=== PATIENT | male | born 1960 | race American Indian/Alaskan Native ===

== ENCOUNTER 2020-12-06 11:48 | Observation (INO) | payer OTHER ==
--- NOTE | 2020-12-06 12:46 | Event Note ---
ED Screening Note Date of service: 12/06/20 Time: 12:43 ED Screening Note: Patient was sent to the ER today by his primary care doctor with complaints of chest pain and low heart rate. Patient states that he started having left-sided chest pain back in September 2020. The time the chest pain started he was hospitalized for having a CVA with left- sided residual deficits. He states that while he was in the hospital dated a few EKGs with no significant changes. He did see a proj engineer in the hospital and it was recommended that he follows up after he got discharged but due to lack of transportation he never followed up. He states that he went in for checkup by his primary care doctor last week Sunday, he mentioned the chest pain and he noticed his heart rate was low but he told him to come back today for recheck, and again noticed that his heart rate was low and sent him here to the ER. Past medical history includes CVA with left-sided weakness, diabetes, hyperlipidemia and hypertension. This initial assessment/diagnostic orders/clinical plan/treatment(s) is/are subject to change based on patients health status, clinical progression and re- assessment by fellow clinical providers in the ED. Further treatment and workup at subsequent clinical providers discretion. Patient/guardian urged not to elope from the ED as their condition may be serious if not clinically assessed and managed. Initial orders include: Chest pain order set
[2020-12-06 13:34] LABS: Basophils # (Auto) 0.1 K/mm3 (0.0-0.1); Basophils % (Auto) 1.1 % (0.0-1.8); Eosinophils # (Auto) 0.1 K/mm3 (0.0-0.4); Eosinophils % (Auto) 1.9 % (0.0-4.3); Hematocrit 43.7 % (35.5-45.6); Hemoglobin 14.1 gm/dl (11.8-15.2); Lymphocytes # (Auto) 2.5 K/mm3 (1.2-5.4); Lymphocytes % (Auto) 48.2 % (13.4-35.0); Mean Corpuscular HGB Conc 32 % (32-34); Mean Corpuscular Volume 90 fl (84-94); Monocytes # (Auto) 0.5 K/mm3 (0.0-0.8); Monocytes % (Auto) 9.5 % (0.0-7.3); Platelet Count 151 K/mm3 (140-440); Red Blood Count 4.88 M/mm3 (3.65-5.03); Red Cell Distribution Width 13.9 % (13.2-15.2)
[2020-12-06 13:43] LABS: INR 1.09 (0.87-1.13)
[2020-12-06 13:44] LABS: Partial Thromboplastin Time 27.4 Sec. (24.2-36.6)
[2020-12-06 13:53] LABS: Alanine Aminotransferase 22 units/L (7-56); Albumin 4.2 g/dL (3.9-5); BUN/Creatinine Ratio 15; Blood Urea Nitrogen 12 mg/dL (9-20); Calcium 8.9 mg/dL (8.4-10.2); Hemolysis Index 8
--- NOTE | 2020-12-06 14:12 | XRay Report ---
CHEST PA AND LATERAL VIEWS INDICATION: Chest Pain. COMPARISON: 11/04/2020 FINDINGS: Support devices: None. Heart: Within normal limits. Lungs/Pleura: No acute pulmonary or pleural findings. IMPRESSION: 1. No significant change. Signer Name: Pedro Harris MD Signed: 12/06/2020 2:07 PM Workstation Name: [id number]
[2020-12-06 14:15] LABS: Amphetamine Screen,Urine Negative; Benzodiazepines Screen,Urine Negative; Cannabinoid Screen,Urine Negative; Cocaine Screen,Urine Negative; Methadone Screen,Urine Negative; Opiate Screen,Urine Negative
--- NOTE | 2020-12-06 20:19 | Emergency Department Report ---
ED Chest Pain HPI - General Chief Complaint: Chest Pain Stated Complaint: TROUBLE BREATHING Time Seen by Provider: 12/06/20 19:12 Source: patient Mode of arrival: Ambulatory Limitations: No Limitations - History of Present Illness Initial Comments: This is a 60-year-old male nontoxic, well nourished in appearance, no acute signs of distress presents to the ED with c/o of left sided chest pain, shortness of breath x1 month and worsened since Sunday. Patient stated has some radiation to the left shoulder. Patient describes pain as sharp with tightness in nature. Patient denies any upper respiratory symptoms. Patient denies any hemoptysis, fever, chills, nausea, vomiting, headache, stiff neck, numbness, tingling, abdominal pain. Patient denies any recent travels or long car rides. Patient denies any recent surgeries or any sick contacts. Patient denies any drug allergies. Past medical history includes CVA, diabetes and hypertension, hyperlipidemia and bradycardia. Patient was sent by PCP for further evaluation possible admission MD Complaint: chest pain -: month(s) Pain Location: left chest Pain Radiation: LUE Severity: moderate Severity scale (0 -10): 8 Quality: tightness, sharp Consistency: constant Improves With: nothing Worsens With: nothing re: denies: nausea, vomting, diaphoresis, dyspnea, sense of impending doom Other Symptoms: denies: cough, fever, syncope, rash, acid taste in mouth, leg swelling, palpitations, burping Treatments Prior to Arrival: none - Related Data Previous Rx's Medication Instructions Recorded Last Taken Type Aspirin EC [Ecotrin] 325 mg PO QDAY #30 tablet 11/05/20 Unknown Rx AtorvaSTATin [Lipitor] 40 mg PO QHS #30 tablet 11/05/20 Unknown Rx Gabapentin 100 mg PO Q8HR #90 capsule 11/05/20 Unknown Rx Insulin NPH Hum/Reg Insulin Hm 17 unit SQ BIDWM #1 vial 11/05/20 Unknown Rx [Novolin 70-30 100 Unit/ml Vial] Pantoprazole [Protonix TAB] 20 mg PO QDAC #30 tablet. 11/05/20 Unknown Rx amLODIPine 10 mg PO QDAY #30 tablet 11/05/20 Unknown Rx glipiZIDE [Glucotrol] 10 mg PO BIDDIAB #60 tablet 11/05/20 Unknown Rx lisinopriL [Zestril TAB] 30 mg PO QDAY #45 tablet 11/05/20 Unknown Rx Allergies Allergy/AdvReac Type Severity Reaction Status Date / Time No Known Allergies Allergy Verified 09/30/20 05:53 Heart Score - HEART Score History: Moderately suspicious EKG: Normal Age: 45-65 Risk factors: > 3 risk factors or hx of atherosclerotic disease Troponin: < normal limit HEART Score: 4 - EKG Read Time Time EKG Completed: 00:00 (see EKG ) EKG Read Time: 00:00 (see EKG) - Critical Actions Critical Actions: 4-6 pts:12-16.6% risk of adverse cardiac event. Should be admitted ED Review of Systems ROS: Stated complaint: TROUBLE BREATHING Other details as noted in HPI Constitutional: denies: chills, fever Eyes: denies: eye pain, eye discharge, vision change ENT: denies: ear pain, throat pain Respiratory: shortness of breath. denies: cough, wheezing Cardiovascular: chest pain. denies: palpitations Endocrine: no symptoms reported Gastrointestinal: denies: abdominal pain, nausea, diarrhea Genitourinary: denies: urgency, dysuria Musculoskeletal: denies: back pain, joint swelling, arthralgia Skin: denies: rash, lesions Neurological: denies: headache, weakness, paresthesias Psychiatric: denies: anxiety, depression Hematological/Lymphatic: denies: easy bleeding, easy bruising ED Past Medical Hx - Past Medical History Previous Medical History?: Yes Hx Hypertension: Yes Hx CVA: Yes Hx Diabetes: Yes Hx HIV: No Additional medical history: HYPERLIPIDEMIA,BRADYCARDIA - Surgical History Additional Surgical History: glaucoma surgery - Social History Smoking Status: Current Every Day Smoker - Medications Home Medications: Home Medications Medication Instructions Recorded Confirmed Last Taken Type Aspirin EC [Ecotrin] 325 mg PO QDAY #30 tablet 11/05/20 Unknown Rx AtorvaSTATin [Lipitor] 40 mg PO QHS #30 tablet 11/05/20 Unknown Rx Gabapentin 100 mg PO Q8HR #90 capsule 11/05/20 Unknown Rx Insulin NPH Hum/Reg Insulin Hm 17 unit SQ BIDWM #1 vial 11/05/20 Unknown Rx [Novolin 70-30 100 Unit/ml Vial] Pantoprazole [Protonix TAB] 20 mg PO QDAC #30 tablet. 11/05/20 Unknown Rx amLODIPine 10 mg PO QDAY #30 tablet 11/05/20 Unknown Rx glipiZIDE [Glucotrol] 10 mg PO BIDDIAB #60 tablet 11/05/20 Unknown Rx lisinopriL [Zestril TAB] 30 mg PO QDAY #45 tablet 11/05/20 Unknown Rx ED Physical Exam - General Limitations: No Limitations General appearance: alert, in no apparent distress - Head Head exam: Present: atraumatic, normocephalic - Eye Eye exam: Present: normal appearance - Neck Neck exam: Present: normal inspection, full ROM. Absent: lymphadenopathy - Respiratory Respiratory exam: Present: normal lung sounds bilaterally. Absent: respiratory distress, wheezes, rales, rhonchi, stridor, chest wall tenderness, accessory muscle use, decreased breath sounds, prolonged expiratory - Cardiovascular Cardiovascular Exam: Present: normal rhythm, bradycardia, normal heart sounds. Absent: systolic murmur, diastolic murmur, rubs, gallop - GI/Abdominal GI/Abdominal exam: Present: soft, normal bowel sounds. Absent: distended, tenderness, guarding, rebound, rigid, diminished bowel sounds - Extremities Exam Extremities exam: Present: normal inspection, full ROM, normal capillary refill. Absent: tenderness, pedal edema - Back Exam Back exam: Present: normal inspection, full ROM - Neurological Exam Neurological exam: Present: alert, oriented X3, normal gait - Psychiatric Psychiatric exam: Present: normal affect, normal mood - Skin Skin exam: Present: warm, dry, intact, normal color. Absent: rash ED Course Vital Signs 12/06/20 12/06/20 11:57 23:06 Temperature 98.3 F Pulse Rate 53 L 56 L Respiratory 18 16 Rate Blood Pressure 166/83 150/77 [Right] O2 Sat by Pulse 99 98 Oximetry - Reevaluation(s) Reevaluation #1: 12/06/20 20:17 Patient is speaking in full sentences with no signs of distress noted. - Consultations Consultation #1: 12/06/20 21:39 Patient has been consulted with Dr. Timmons about patient history, physical exam, and labs and accepts patient to services. EMMETT score - Emmett Score Age > 65: (0) No Aspirin use within the Past 7 Days: (0) No 3 or more CAD Risk Factors: (1) Yes 2 or more Angina events in past 24 hrs: (1) Yes Known CAD with more than 50% Stenosis: (0) No Elevated Cardiac Markers: (0) No ST Deviation Greater than 0.5mm: (0) No EMMETT Score: 2 ED Medical Decision Making - Lab Data Result diagrams: 12/06/20 23:58 12/06/20 23:58 Lab Results 12/06/20 12/06/20 12/06/20 Range/Units 12:56 12:56 12:56 WBC 5.1 (4.5-11.0) K/mm3 RBC 4.88 (3.65-5.03) M/mm3 Hgb 14.1 (11.8-15.2) gm/dl Hct 43.7 (35.5-45.6) % MCV 90 (84-94) fl MCH 29 (28-32) pg MCHC 32 (32-34) % RDW 13.9 (13.2-15.2) % Plt Count 151 (140-440) K/mm3 Lymph % (Auto) 48.2 H (13.4-35.0) % [place] % (Auto) 9.5 H (0.0-7.3) % Eos % (Auto) 1.9 (0.0-4.3) % Baso % (Auto) 1.1 (0.0-1.8) % Lymph # (Auto) 2.5 (1.2-5.4) K/mm3 [place] # (Auto) 0.5 (0.0-0.8) K/mm3 Eos # (Auto) 0.1 (0.0-0.4) K/mm3 Baso # (Auto) 0.1 (0.0-0.1) K/mm3 Seg Neutrophils % 39.3 L (40.0-70.0) % Seg Neutrophils # 2.0 (1.8-7.7) K/mm3 PT 13.9 (12.2-14.9) Sec. INR 1.09 (0.87-1.13) APTT 27.4 (24.2-36.6) Sec. Sodium 138 (137-145) mmol/L Potassium 4.0 (3.6-5.0) mmol/L Chloride 102.1 (98-107) mmol/L Carbon Dioxide 29 (22-30) mmol/L Anion Gap 11 mmol/L BUN 12 (9-20) mg/dL Creatinine 0.8 (0.8-1.3) mg/dL Estimated GFR > 60 ml/min BUN/Creatinine Ratio 15 % Glucose 172 H (75-100) mg/dL Calcium 8.9 (8.4-10.2) mg/dL Total Bilirubin 0.20 (0.1-1.2) mg/dL AST 19 (5-40) units/L ALT 22 (7-56) units/L Alkaline Phosphatase 63 (35-129) units/L Troponin T < 0.010 (0.00-0.029) ng/mL NT-Pro-B Natriuret Pep (0-900) pg/mL Total Protein 7.7 (6.3-8.2) g/dL Albumin 4.2 (3.9-5) g/dL Albumin/Globulin Ratio 1.2 % Lipase 31 (13-60) units/L Urine Opiates Screen Urine Methadone Screen Ur Barbiturates Screen Ur Phencyclidine Scrn Ur Amphetamines Screen U Benzodiazepines Scrn Urine Cocaine Screen U Marijuana (THC) Screen Drugs of Abuse Note 12/06/20 12/06/20 12/06/20 Range/Units 13:00 13:56 18:14 WBC (4.5-11.0) K/mm3 RBC (3.65-5.03) M/mm3 Hgb (11.8-15.2) gm/dl Hct (35.5-45.6) % MCV (84-94) fl MCH (28-32) pg MCHC (32-34) % RDW (13.2-15.2) % Plt Count (140-440) K/mm3 Lymph % (Auto) (13.4-35.0) % [place] % (Auto) (0.0-7.3) % Eos % (Auto) (0.0-4.3) % Baso % (Auto) (0.0-1.8) % Lymph # (Auto) (1.2-5.4) K/mm3 [place] # (Auto) (0.0-0.8) K/mm3 Eos # (Auto) (0.0-0.4) K/mm3 Baso # (Auto) (0.0-0.1) K/mm3 Seg Neutrophils % (40.0-70.0) % Seg Neutrophils # (1.8-7.7) K/mm3 PT (12.2-14.9) Sec. INR (0.87-1.13) APTT (24.2-36.6) Sec. Sodium (137-145) mmol/L Potassium (3.6-5.0) mmol/L Chloride (98-107) mmol/L Carbon Dioxide (22-30) mmol/L Anion Gap mmol/L BUN (9-20) mg/dL Creatinine (0.8-1.3) mg/dL Estimated GFR ml/min BUN/Creatinine Ratio % Glucose (75-100) mg/dL Calcium (8.4-10.2) mg/dL Total Bilirubin (0.1-1.2) mg/dL AST (5-40) units/L ALT (7-56) units/L Alkaline Phosphatase (35-129) units/L Troponin T < 0.010 (0.00-0.029) ng/mL NT-Pro-B Natriuret Pep 158.9 (0-900) pg/mL Total Protein (6.3-8.2) g/dL Albumin (3.9-5) g/dL Albumin/Globulin Ratio % Lipase (13-60) units/L Urine Opiates Screen Negative Urine Methadone Screen Negative Ur Barbiturates Screen Negative Ur Phencyclidine Scrn Negative Ur Amphetamines Screen Negative U Benzodiazepines Scrn Negative Urine Cocaine Screen Negative U Marijuana (THC) Screen Negative Drugs of Abuse Note Disclamer - EKG Data 12/06/20 20:18 Sinus bradycardia at 51 bpm. Left bundle todd block. No significant ST abnormalities. Reviewed and signed by MD. - Radiology Data [facility] [address] [place] [address] XRay Report Signed Patient: VITO MARIN MR#: [id number] : 1960 Acct:[id number] Age/Sex: 60 / M ADM Date: 12/06/20 Loc: ED Attending Dr: Ordering Physician: OMAR CASTANEDA Date of Service: 12/06/20 Procedure(s): XR chest routine 2V Accession Number(s): [id number] cc: OMAR CASTANEDA Fluoro Time In Minutes: CHEST PA AND LATERAL VIEWS INDICATION: Chest Pain. COMPARISON: 11/04/2020 FINDINGS: Support devices: None. Heart: Within normal limits. Lungs/Pleura: No acute pulmonary or pleural findings. IMPRESSION: 1. No significant change. Signer Name: Pedro Harris MD Signed: 12/06/2020 2:07 PM [employer] Name: [email or web address] Transcribed By: AIDE Dictated By: Pedro Harris MD Electronically Authenticated By: Pedro Harris MD Signed Date/Time: 12/06/201406 DD/ 05 TD/TT: - Medical Decision Making 60-year-old male that presents with chest pain and shortness of breath. Patient otherwise is stable and was examined by me. Patient has a heart score and EMMETT score of 4 and 3. Patient denies following up with a vertical lathe operator recently for echocardiogram or stress test. Patient was sent by PCP for further relation possible admission. Patient met with hospitalist for further evaluation and treatment. Diagnostic studies has been obtained. Patient is notified of the results with no questions noted by the patient. At time of admission, the patient does not seem toxic or ill in appearance. No acute signs of distress noted. Patient agrees to admission treatment plan of care. No further questions noted by the patient. Critical care attestation.: If time is entered above; I have spent that time in minutes in the direct care of this critically ill patient, excluding procedure time. ED Disposition Clinical Impression: SOB (shortness of breath) Chest pain Qualifiers: Chest pain type: unspecified Qualified Code(s): R07.9 - Chest pain, unspecified Disposition: OP ADMIT IP TO THIS HOSP Is pt being admited?: Yes Condition: Stable Time of Disposition: 21:40
[2020-12-06 21:26] LABS: Bilirubin,Urine NEG (Negative); Blood,Urine SM (Negative); Color,Urine Yellow (Yellow); Mucus,Urine FEW /HPF; Urobilinogen,Urine < 2.0 mg/dL (<2.0)
[2020-12-06] MEDS ORDERED: MORPHINE 4 MG/1 ML INJ IV PRN (22:16)
[2020-12-06] MEDS ORDERED: MAGNESIUM HYDROXIDE (MOM) ORAL LIQD UDC PO PRN (22:16)
[2020-12-06] MEDS ORDERED: ONDANSETRON 4 MG/2 ML INJ IV PRN (22:16)
[2020-12-06] MEDS ORDERED: DEXTROSE 50% IN WATER (25GM) 50 ML SYRINGE IV PRN (22:16)
[2020-12-06] MEDS ORDERED: ACETAMINOPHEN 325 MG TAB PO PRN ×2 (22:16)
[2020-12-06] MEDS ORDERED: traMADol 50 MG TAB PO PRN (22:16)
[2020-12-06] MEDS ORDERED: NITROGLYCERIN 0.4 MG TAB SUBL SL PRN (22:16)
--- NOTE | 2020-12-06 22:31 | History and Physical Report ---
History of Present Illness Date of examination: 12/06/20 Date of admission: 12/06/2020 Chief complaint: CHEST PAIN History of present illness: 60-year-old male presenting in the emergency room today complaining of left- sided chest pain which has been ongoing for the past 3 days. Chest pain has been associated with shortness of breath. He describes pain as sharp affect like tightness in nature. He denies any fever or chills, no nausea vomiting, no headache or dizziness, no diaphoresis. He has been no pain of radiation of the pain. There is no known relieving or exacerbating factor. Patient denies any sick contacts or recent travel. Denies any contact with anyone with COVID-19. He was recently in this hospital having had a CVA and has also gone for rehab. Patient was seen by his primary care physician who encouraged him to report to the emergency room for further evaluation. Work-up in the emergency room today, chest x-ray has been unremarkable. T roponin and EKG has been negative for any acute abnormalities. Patient is being admitted for chest pain evaluation. Past History Past Medical History: diabetes, hypertension, hyperlipidemia, stroke Past Surgical History: Other (Glaucoma surgery) Social history: smoking (Current daily smoker) Family history: no significant family history Medications and Allergies Allergies Allergy/AdvReac Type Severity Reaction Status Date / Time No Known Allergies Allergy Verified 09/30/20 05:53 Home Medications Medication Instructions Recorded Confirmed Last Taken Type Aspirin EC [Ecotrin] 325 mg PO QDAY #30 tablet 11/05/20 Unknown Rx AtorvaSTATin [Lipitor] 40 mg PO QHS #30 tablet 11/05/20 Unknown Rx Gabapentin 100 mg PO Q8HR #90 capsule 11/05/20 Unknown Rx Insulin NPH Hum/Reg Insulin Hm 17 unit SQ BIDWM #1 vial 11/05/20 Unknown Rx [Novolin 70-30 100 Unit/ml Vial] Pantoprazole [Protonix TAB] 20 mg PO QDAC #30 tablet. 11/05/20 Unknown Rx amLODIPine 10 mg PO QDAY #30 tablet 11/05/20 Unknown Rx glipiZIDE [Glucotrol] 10 mg PO BIDDIAB #60 tablet 11/05/20 Unknown Rx lisinopriL [Zestril TAB] 30 mg PO QDAY #45 tablet 11/05/20 Unknown Rx Review of Systems Constitutional: no fever, no chills Ears, nose, mouth and throat: no nasal congestion, no sore throat Cardiovascular: chest pain, no palpitations Respiratory: no cough, no shortness of breath Gastrointestinal: no abdominal pain, no nausea, no vomiting, no diarrhea Genitourinary Male: no dysuria, no hematuria, no flank pain, no nocturia Musculoskeletal: no neck pain, no low back pain Integumentary: no rash, no pruritis Neurological: no headaches, no confusion Psychiatric: no anxiety, no depression Endocrine: no polyphagia, no polydipsia, no polyuria Exam - Constitutional Vitals: Temp Pulse Resp BP Pulse Ox 98.3 F 53 L 18 166/83 99 12/06/20 11:57 12/06/20 11:57 12/06/20 11:57 12/06/20 11:57 12/06/20 11:57 General appearance: Present: no acute distress, well-nourished - EENT Eyes: Present: PERRL, EOM intact. Absent: scleral icterus ENT: hearing intact, clear oral mucosa, dentition normal - Neck Neck: Present: supple, normal ROM - Respiratory Respiratory effort: normal Respiratory: bilateral: CTA - Cardiovascular Rhythm: regular Heart Sounds: Present: S1 & S2. Absent: gallop, systolic murmur, diastolic murmur, rub, click - Extremities Extremities: no ischemia, pulses intact, pulses symmetrical, normal temperature, normal color, Full ROM Extremity abnormal: edema (1+ ankle edema bilaterally) Peripheral Pulses: within normal limits - Abdominal General gastrointestinal: Present: soft, non-tender, non-distended, normal bowel sounds. Absent: mass - Integumentary Integumentary: Present: clear, warm, dry. Absent: rash - Musculoskeletal Musculoskeletal: strength equal bilaterally, left sided weakness - Psychiatric Psychiatric: appropriate mood/affect, intact judgment & insight, memory intact, cooperative - Neurologic Neurologic: CNII-XII intact, no focal deficits, moves all extremities HEART Score - HEART Score History: Moderately suspicious EKG: Normal Age: 45-65 Risk factors: > 3 risk factors or hx of atherosclerotic disease Troponin: Troponin T < 0.010 ng/mL (0.00-0.029) 12/06/20 18:14 Troponin: < normal limit HEART Score: 4 - Critical Actions Critical Actions: 4-6 pts:12-16.6% risk of adverse cardiac event. Should be admitted Results - Labs CBC & Chem 7: 12/07/20 04:29 12/06/20 23:58 Labs: Abnormal lab results 12/06/20 12/06/20 12/06/20 Range/Units 12:56 12:56 Unknown Lymph % (Auto) 48.2 H (13.4-35.0) % [place] % (Auto) 9.5 H (0.0-7.3) % Seg Neutrophils % 39.3 L (40.0-70.0) % Glucose 172 H (75-100) mg/dL Urine WBC (Auto) 9.0 H (0.0-6.0) /HPF Assessment and Plan - Patient Problems (1) Chest pain Current Visit: Yes Status: Acute Qualifiers: Chest pain type: unspecified Qualified Code(s): R07.9 - Chest pain, unspecified Plan to address problem: Patient placed on telemetry. Will check serial cardiac enzymes. Patient commenced on daily aspirin, sublingual nitroglycerin and IV morphine as needed for chest pain. We will place consult to cardiology for evaluation. (2) Hypertension Current Visit: No Status: Acute Plan to address problem: We will resume routine home medications and monitor vital signs closely. (3) Diabetes mellitus Current Visit: No Status: Acute Plan to address problem: We will monitor Accu-Cheks. Patient placed on sliding scale insulin. (4) History of CVA (cerebrovascular accident) Current Visit: Yes Status: Acute Plan to address problem: Patient had CVA recently. Currently going to rehab. We will continue on daily aspirin. Consult will be placed to physical therapy for evaluation and recommendations while in the hospital. (5) DVT prophylaxis Current Visit: No Status: Acute Plan to address problem: Patient placed on subcutaneous heparin. (6) Full code status Current Visit: No Status: Acute Plan to address problem: Patient is a full code.
[2020-12-07 00:25] LABS: Basophils % (Auto) 0.4 % (0.0-1.8); Eosinophils # (Auto) 0.1 K/mm3 (0.0-0.4); Eosinophils % (Auto) 2.1 % (0.0-4.3); Hematocrit 40.2 % (35.5-45.6); Hemoglobin 13.3 gm/dl (11.8-15.2); Lymphocytes # (Auto) 2.5 K/mm3 (1.2-5.4); Mean Corpuscular HGB Conc 33 % (32-34); Mean Corpuscular Volume 89 fl (84-94); Monocytes # (Auto) 0.5 K/mm3 (0.0-0.8); Monocytes % (Auto) 10.3 % (0.0-7.3); Platelet Count 134 K/mm3 (140-440); Red Blood Count 4.52 M/mm3 (3.65-5.03); Red Cell Distribution Width 13.7 % (13.2-15.2)
[2020-12-07 00:30] LABS: BUN/Creatinine Ratio 15; Blood Urea Nitrogen 12 mg/dL (9-20); Calcium 8.6 mg/dL (8.4-10.2); Hemolysis Index 6
[2020-12-07 02:23] LABS: Chol/HDL Ratio 3.45 %
[2020-12-07] MEDS: HEPARIN 5,000 UNIT/1 ML VIAL SUB-Q SCH ×2 (05:41→13:01)
[2020-12-07 06:12] LABS: Basophils % (Auto) 0.3 % (0.0-1.8); Eosinophils # (Auto) 0.1 K/mm3 (0.0-0.4); Eosinophils % (Auto) 1.6 % (0.0-4.3); Hematocrit 41.2 % (35.5-45.6); Hemoglobin 13.4 gm/dl (11.8-15.2); Lymphocytes % (Auto) 50.7 % (13.4-35.0); Mean Corpuscular HGB Conc 33 % (32-34); Mean Corpuscular Volume 89 fl (84-94); Monocytes # (Auto) 0.7 K/mm3 (0.0-0.8); Monocytes % (Auto) 11.2 % (0.0-7.3); Platelet Count 153 K/mm3 (140-440); Red Blood Count 4.63 M/mm3 (3.65-5.03); Red Cell Distribution Width 13.9 % (13.2-15.2)
[2020-12-07 06:14] LABS: INR 1.14 (0.87-1.13)
[2020-12-07 06:23] LABS: BUN/Creatinine Ratio 13; Blood Urea Nitrogen 10 mg/dL (9-20); Calcium 8.6 mg/dL (8.4-10.2); Hemolysis Index 6
[2020-12-07] MEDS: INSULIN REGULAR, HUMAN 100 UNITS/1 ML SUB-Q SCH ×2 (07:58→13:03)
[2020-12-07] MEDS ORDERED: ASPIRIN EC 325 MG TAB PO SCH (10:00)
[2020-12-07] MEDS ORDERED: LISINOPRIL 20 MG TAB PO SCH (10:00)
[2020-12-07] MEDS ORDERED: amLODIPine 10 MG TAB PO SCH (10:00)
[2020-12-07] MEDS ORDERED: REGADENOSON 0.4 MG/5 ML INJ IV ONE ×2 (10:02→11:52)
--- NOTE | 2020-12-07 11:01 | Consultation ---
History of Present Illness Consult date: 12/07/20 Consult reason: chest pain History of present illness: The patient is a 60-year-old man who was hospitalized in this hospital several weeks ago with an acute CVA in the setting of uncontrolled hypertension. He completed successful rehab and was discharged on optimal medications for blood pressure management. An echocardiogram during the presentation showed normal left ventricular systolic function, ejection fraction 50 to 55%, and negative PFO on contrast saline assessment. He was referred to the hospital at this time from his outpatient doctors office for the finding of "low heart rate". On presentation to the emergency room, the patient had a sinus bradycardia in the low 50s. There was no complaints of fatigue or dizziness or syncope. The patient on review of systems reported some atypical, nonexertional chest pain, and he was therefore admitted for chest pain evaluation. Serial ECGs show a sinus bradycardia with changes of left ventricle hypertrophy, no acute ischemia or infarction. Serial troponin levels were negative x3. He was ordered for a Lexiscan thallium stress test by the medical service. Past History Past Medical History: diabetes, hypertension, hyperlipidemia, stroke Past Surgical History: Other (Glaucoma surgery) Social history: smoking (Current daily smoker) Family history: no significant family history Medications and Allergies Allergies Allergy/AdvReac Type Severity Reaction Status Date / Time No Known Allergies Allergy Verified 09/30/20 05:53 Home Medications Medication Instructions Recorded Confirmed Last Taken Type Aspirin EC [Ecotrin] 325 mg PO QDAY #30 tablet 11/05/20 Unknown Rx AtorvaSTATin [Lipitor] 40 mg PO QHS #30 tablet 11/05/20 Unknown Rx Gabapentin 100 mg PO Q8HR #90 capsule 11/05/20 Unknown Rx Insulin NPH Hum/Reg Insulin Hm 17 unit SQ BIDWM #1 vial 11/05/20 Unknown Rx [Novolin 70-30 100 Unit/ml Vial] Pantoprazole [Protonix TAB] 20 mg PO QDAC #30 tablet. 11/05/20 Unknown Rx amLODIPine 10 mg PO QDAY #30 tablet 11/05/20 Unknown Rx glipiZIDE [Glucotrol] 10 mg PO BIDDIAB #60 tablet 11/05/20 Unknown Rx lisinopriL [Zestril TAB] 30 mg PO QDAY #45 tablet 11/05/20 Unknown Rx Active Meds: Active Medications Acetaminophen (Acetaminophen 325 Mg Tab) 650 mg PO Q4H PRN PRN Reason: Pain MILD(1-3)/Fever >100.5/[place] Amlodipine Besylate (Amlodipine 10 Mg Tab) 10 mg PO QDAY [facility] Aspirin (Aspirin Ec 325 Mg Tab) 325 mg PO QDAY [facility] Atorvastatin Calcium (Atorvastatin 40 Mg Tab) 40 mg PO QHS [facility] Dextrose (Dextrose 50% In Water (25gm) 50 Ml Syringe) 50 ml IV Q30MIN PRN; Protocol PRN Reason: Hypoglycemia Gabapentin (Gabapentin 100 Mg Cap) 100 mg PO Q8HR KARISSA Glipizide (Glipizide 10 Mg Tab) 10 mg PO BIDDIAB [facility] Heparin Sodium (Porcine) (Heparin 5,000 Unit/1 Ml Vial) 5,000 unit SUB-Q Q8HR [facility] Last Admin: 12/07/20 05:41 Dose: 5,000 unit Documented by: Insulin Human Regular (Insulin Regular, Human 100 Units/1 Ml) 0 units SUB-Q ACHS [facility]; Protocol Last Admin: 12/07/20 07:58 Dose: Not Given Documented by: Lisinopril (Lisinopril 20 Mg Tab) 30 mg PO QDAY [facility] Magnesium Hydroxide (Magnesium Hydroxide (Mom) Oral Liqd Udc) 30 ml PO Q4H PRN PRN Reason: Constipation Morphine Sulfate (Morphine 4 Mg/1 Ml Inj) 2 mg IV Q5MIN PRN PRN Reason: Chest Pain Nitroglycerin (Nitroglycerin 0.4 Mg Tab Subl) 0.4 mg SL Q5M PRN PRN Reason: Chest Pain Ondansetron HCl (Ondansetron 4 Mg/2 Ml Inj) 4 mg IV Q8H PRN PRN Reason: Nausea And Vomiting Pantoprazole Sodium (Pantoprazole 20 Mg Tab) 20 mg PO QDAC [facility] Sodium Chloride (Sodium Chloride 0.9% 10 Ml Flush Syringe) 10 ml IV BID KARISSA Sodium Chloride (Sodium Chloride 0.9% 10 Ml Flush Syringe) 10 ml IV PRN PRN PRN Reason: LINE FLUSH Tramadol HCl (Tramadol 50 Mg Tab) 50 mg PO Q6H PRN PRN Reason: Pain, Moderate (4-6) Review of Systems Cardiovascular: chest pain, no orthopnea, no palpitations, no rapid/irregular heart beat, no edema, no syncope, no lightheadedness, no shortness of breath Physical Examination Vital Signs Temp Pulse Resp BP Pulse Ox 98.3 F 53 L 18 166/83 99 12/06/20 11:57 12/06/20 11:57 12/06/20 11:57 12/06/20 11:57 12/06/20 11:57 General appearance: no acute distress HEENT: Positive: PERRL Neck: Positive: neck supple Cardiac: Positive: Reg Rate and Rhythm Lungs: Positive: clear to auscultation Neuro: Positive: Weakness (Right-sided motor weakness) Abdomen: Positive: Soft Male genitourinary: Positive: deferred Skin: Positive: Clear Extremities: Absent: edema Results 12/07/20 04:29 12/07/20 04:29 Cardiac Enzymes 12/06/20 Range/Units 12:56 AST 19 (5-40) units/L Coagulation 12/06/20 12/07/20 Range/Units 12:56 04:29 PT 13.9 14.4 (12.2-14.9) Sec. INR 1.09 1.14 H (0.87-1.13) APTT 27.4 (24.2-36.6) Sec. Lipids 12/06/20 Range/Units 23:58 Triglycerides 98 (2-149) mg/dL Cholesterol 114 (50-199) mg/dL HDL Cholesterol 33 L (40-59) mg/dL Cholesterol/HDL Ratio 3.45 % CBC 12/06/20 12/06/20 12/07/20 Range/Units 12:56 23:58 04:29 WBC 5.1 5.3 6.0 (4.5-11.0) K/mm3 RBC 4.88 4.52 4.63 (3.65-5.03) M/mm3 Hgb 14.1 13.3 13.4 (11.8-15.2) gm/dl Hct 43.7 40.2 41.2 (35.5-45.6) % Plt Count 151 134 L 153 (140-440) K/mm3 Lymph # (Auto) 2.5 2.5 3.0 (1.2-5.4) K/mm3 Stanton # (Auto) 0.5 0.5 0.7 (0.0-0.8) K/mm3 Eos # (Auto) 0.1 0.1 0.1 (0.0-0.4) K/mm3 Baso # (Auto) 0.1 0.0 0.0 (0.0-0.1) K/mm3 Comprehensive Metabolic Panel 12/06/20 12/06/20 12/07/20 Range/Units 12:56 23:58 04:29 Sodium 138 138 138 (137-145) mmol/L Potassium 4.0 3.9 4.1 (3.6-5.0) mmol/L Chloride 102.1 102.4 100.8 (98-107) mmol/L Carbon Dioxide 29 31 H 30 (22-30) mmol/L BUN 12 12 10 (9-20) mg/dL Creatinine 0.8 0.8 0.8 (0.8-1.3) mg/dL Glucose 172 H 203 H 180 H (75-100) mg/dL Calcium 8.9 8.6 8.6 (8.4-10.2) mg/dL AST 19 (5-40) units/L ALT 22 (7-56) units/L Alkaline Phosphatase 63 (35-129) units/L Total Protein 7.7 (6.3-8.2) g/dL Albumin 4.2 (3.9-5) g/dL EKG interpretations - Telemetry EKG Rhythm: Sinus Bradycardia (With left ventricular hypertrophy) Assessment and Plan - Patient Problems (1) Atypical chest pain Current Visit: Yes Status: Acute Plan to address problem: Atypical, nonanginal type chest pain, we will proceed with Lexiscan thallium stress test as ordered. Low suspicion for cardiac ischemia. (2) Hypertension Current Visit: Yes Status: Acute Plan to address problem: We will optimize medical therapy for hypertensive control.
--- NOTE | 2020-12-07 12:48 | Discharge Summary ---
Providers - Providers Date of Admission: 12/06/20 22:11 Date of discharge: 12/14/20 Attending physician: EDITH QUAN 12/06/20 Consult to Cardiac Rehabilitation [CONS] Routine Reason For Exam: Phase I 12/06/20 22:17 Consult to Dietitian/Nutrition [CONS] Routine Physician Instructions: Reason For Exam: Reason for Consult: Diet education 12/06/20 22:19 Consult to Cardiology [CONS] Routine Consulting Provider: ALESSIO CHAU Reason For Exam: CHEST PAIN 12/07/20 06:26 Physical Therapy Evaluation and Treat [CONS] Routine Comment: Reason For Exam: Recent CVA with left-sided weakness. Primary care physician: MAIL OFFICER Hospitalization Condition: Stable Hospital course: The patient is a 60-year-old man h/o diabetes mellitus, HTN, tobacco abuse who was hospitalized in this hospital several weeks ago with an acute CVA, uncontrolled hypertension. He was then discharged for rehab and was placed on optimal medications for blood pressure management. An echocardiogram during the presentation showed normal left ventricular systolic function, ejection fraction 50 to 55%, and negative PFO on contrast saline assessment. He was referred to the hospital at this time from his outpatient doctors office for the finding of "low heart rate" and patient also reported chest pain. On presentation to the emergency room, the patient had a sinus bradycardia in the low 50s. There was no complaints of fatigue or dizziness or syncope. Serial ECGs show a sinus bradycardia with changes of left ventricle hypertrophy, no acute ischemia or infarction. Serial troponin levels were negative x3. chest x-ray has been unremarkable. He was ordered for a Lexiscan thallium stress test and legal summer intern was consulted. Cardiology recommended to hold any beta- yudelka or mireya blocking medications. Patient is planned for discharge home as an outpatient once stress test result is negative. Patient will be following up with legal summer intern in 1 week following discharge. Disposition: - TO HOME OR SELFCARE Final Discharge Diagnosis (Prints w/discharge instructions): Acute chest pain, likely due to GERD. Hypertension. Diabetes mellitus type 2. History of CVA. Sinus bradycardia Time spent for discharge: 34 minutes Core Measure Documentation - Palliative Care Palliative Care/ Comfort Measures: Not Applicable - Core Measures Any of the following diagnoses?: history only Exam - Physical Exam Narrative exam: GENERAL: well-developed and well-nourished -[place] male lying on bed appeared to be in no discomfort. HEENT: Normocephalic. Atraumatic. No conjunctival congestion or icterus. Patient has moist mucous membranes. NECK: Supple. Trachea midline. CHEST/LUNGS: Clear to auscultated bilaterally, breathing nonlabored. No wheezes crackles or rhonchi. HEART/CARDIOVASCULAR: Regular in rate and rhythm. S1 and S2 positive. ABDOMEN: Abdomen is soft, nontender. Patient has normal bowel sounds. SKIN: There is no rash. Warm and dry. NEURO: No focal motor deficit. Follows command. MUSCULOSKELETAL: No joint effusion or tenderness. EXTRIMITY: No edema, no cyanosis or clubbing. PSYCH: Cooperative. - Constitutional Vitals: Temp Pulse Resp BP Pulse Ox 98.0 F 49 L 18 142/73 100 12/07/20 07:32 12/07/20 08:08 12/07/20 07:32 12/07/20 07:32 12/07/20 07:32 Plan Activity: no restrictions Weight Bearing Status: Weight Bear as Tolerated Diet: low fat, low salt, diabetic Special Instructions: record daily BP diary, record blood sugar diary Additional Instructions: Please follow-up with legal summer intern in 1 week. Please maintain a BP diary. Monitor your blood glucose daily. Please compliant with dietary restriction and medication Follow up with: BERENICE STEWART MD [Primary Care Provider] - 7 Days LAQUITA MOSQUERA MD [Staff Physician] - 7 Days
[2020-12-07 13:16] VITALS: BP 169/87
[2020-12-07] MEDS ORDERED: GABAPENTIN 100 MG CAP PO SCH (14:00)
--- NOTE | 2020-12-07 14:04 | Nuclear Medicine Report ---
APPROVED REPORT Exam: Nuclear Stress Test Indication: Chest pain BMI: 0 Stress Test Details HR Max Heart Rate (APMHR): 161 bpm Target HR (85% APMHR): 136 bpm BP ECG Resting ECG: , Sinus Bradycardia Stress ECG: Sinus Bradycardia ST Change: None Arrhythmia: None Recovery ECG: Sinus Bradycardia Recovery ST Change: None Recovery Arrhythmia: None Stress ECG Conclusion No chest pain no ST changes of ischemia with a pharmacologic stress testing, myocardial perfusion images are pending for final test interpretation. NM EXAM: Myocardial Perfusion REST/STRESS Imaging Protocol: Rest Tc-99m/Stress Tc-99m 1 day Resting Data Rest SPECT myocardial perfusion imaging was performed in supine position 45 minutes following the intravenous injection of 10 mCi of Tc-99m Myoview. Time of rest injection: 0900 Pharmacologic Stress Pharmacologic stress test was performed by injecting Regadenoson 0.4 mg IV push followed by the intravenous injection of 28 mCi of Tc-99m Myoview. Time of stress injection: 1145 Gated Stress SPECT was performed 30 minutes after stress injection. The images were gated to evaluate regional wall motion and calculate left ventricular ejection fraction. Study Data TID = 0.97. Perfusion Nuclear Conclusion ECG Findings: negative for ischemia Clinical Findings: negative for ischemia Nuclear Findings: negative for ischemia Risk Study: low Normal rest and stress myocardial perfusion images, normal left ventricular systolic function, ejection fraction 60%. Normal study. Conclusion No chest pain no ST changes of ischemia with a pharmacologic stress testing, myocardial perfusion images are pending for final test interpretation.
[2020-12-07] MEDS ORDERED: glipiZIDE 10 MG TAB PO SCH (17:00)
[2020-12-08] MEDS ORDERED: PANTOPRAZOLE 20 MG TAB PO SCH (07:30)
--- NOTE | 2020-12-09 11:36 | Electrocardiograph Report ---
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
--- NOTE | 2020-12-09 12:02 | Treadmill Report ---
[facility] Test Date: 2020-12-08 Test Time: 08:33:42 Pat Name: VITO MARIN Department: Room: A461 1 Gender: M Digital Product Specialist: Latosha Allan : 1960 Requested By: SAURABH PRADO Order Number: [id number] Reading MD: Ella Nunez Interpretive Statements See dictated report Electronically Signed On 12-09-2020 12:02:48 EDT by Ella Nunez
--- NOTE | 2020-12-16 10:53 | Electrocardiograph Report ---
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
== END 2020-12-07 17:24 | disposition home or self-care (01) ==
LOC: ED 11:48 → INTOOBSV 22:11 → 4A 22:11
PROVIDERS: ADMIT Internal Medicine Geriatric Medicine; ATTEND Internal Medicine
DX: R07.89 Other chest pain (principal); I10 Essential (primary) hypertension; E11.9 Type 2 diabetes mellitus without complications; E78.5 Hyperlipidemia, unspecified; H40.9 Unspecified glaucoma; F17.210 Nicotine dependence, cigarettes, uncomplicated; R00.1 Bradycardia, unspecified; M62.81 Muscle weakness (generalized); Z86.73 Personal history of transient ischemic attack (TIA), and cerebral infarction without residual deficits; Z79.4 Long term (current) use of insulin; Z79.82 Long term (current) use of aspirin; Z79.899 Other long term (current) drug therapy
CPT/HCPCS: 36415; 71046; 78452; 80048; 80053; 80061; 80307; 81001; 82962; 83036; 83690; 83880; 84484; 85025; 85610; 85730; 87086; 93005; 93017; 96372; 97162; 99285; A9502; G0378; J1644; J2785; J1815